=== PATIENT | male | born 1985 | race African-American/Black ===

== ENCOUNTER 2017-06-19 19:27 | Emergency (ER) | payer MEDICAID ==
[~2017-06-19] VITALS: Ht 177.8 cm; Wt 98.7 kg
[2017-06-19 19:49] VITALS: BP 138/95; Ht 177.8 cm; Wt 98.7 kg
== END 2017-06-19 20:54 | disposition left against medical advice (07) ==
LOC: ED 19:27
DX: Z53.21 Procedure and treatment not carried out due to patient leaving prior to being seen by health care provider (principal)